=== PATIENT | female | born 1975 | race Caucasian/White ===

== ENCOUNTER 2019-04-28 | Day surgery (SDC) | payer BC ==
[~2019-04-28] MED LIST: DOCUSATE SOD100 M2 PO; MIRALAX3350 N1 PO; OMEPRAZOLE DR40 MG PO; SENNA8.6 MG PO; VALACYCLOVIR500 MG PO
[2019-04-28] MEDS ORDERED: MOTRIN800 MG PO (11:23)
[2019-04-28] MEDS ORDERED: GABAPENTIN100 MG PO (11:23)
[2019-04-28] MEDS ORDERED: PERCOCET 5/325M1 TAB PO (11:23)
[2019-04-28] MEDS ORDERED: LIDOCAINE5 % TOP (11:23)
== END 2019-04-28 12:20 | disposition home or self-care (01) | DRG 349 ==
PROC: 0H88XZZ Division of Buttock Skin, External Approach (ICD-10-PCS; principal; 2019-04-28)
PROC: 06BY3ZC Excision of Hemorrhoidal Plexus, Percutaneous Approach (ICD-10-PCS; 2019-04-28)
DX: K60.3 Anal fistula (principal); K64.8 Other hemorrhoids; K64.4 Residual hemorrhoidal skin tags; F17.210 Nicotine dependence, cigarettes, uncomplicated
CPT/HCPCS: C9290; J0131; J1100